=== PATIENT | male | born 1980 | race African-American/Black ===

== ENCOUNTER 2024-05-20 07:51 | Outpatient (CLI) | payer OTHER, SELFPAY ==
--- NOTE | ~2024-05-20 | MR_ITS ---
EXAMINATION: MR knee LT wo con DATE: 05/20/2024 08:32 INDICATION: Chronic left knee pain. TECHNIQUE: Magnetic resonance imaging (MRI) of the left knee was performed without intravenous contra st. Sequences included axial PD-weighted FS FSE, coronal PD-weighted FSE and PD-weighted FS FSE, sagi ttal PD-weighted FSE, and sagittal T2-weighted FS FSE. COMPARISON: None. FINDINGS: Medial compartment: Medial meniscus is normal. There is cartilage surface irregularity of femoral condyle. Tibial cartila ge is normal. Lateral compartment: The lateral meniscus is normal. There is cartilage surface irregularity of tibial condyle and femoral condyle. Patellofemoral compartment: There is deep cartilage fissuring of patellar medial facet. There is cartilage surface irregularity o f patellar lateral facet. There is partial-thickness cartilage loss of trochlea, worst at the central trochlea. Ligaments and tendons: The anterior and posterior cruciate ligaments are normal. There are changes of prior sprains of media l collateral ligament and fibular collateral ligament characterized by thickening and increased signa l intensity. There is mild patellar tendinopathy. Fluid: There is a small knee joint effusion. There is a suprapatellar . . . IMPRESSION: 1. Mild tricompartmental chondrosis. 2. Small knee effusion. Reviewed, dictated and finalized at location A. [employer]
== END 2024-05-20 07:52 | disposition home or self-care (01) ==
LOC: MICIMG 07:55
PROVIDERS: PCP Orthopaedic Surgery; Visit Provider Orthopaedic Surgery
DX: M25.462 Effusion, left knee (principal)
CPT/HCPCS: 73721